=== PATIENT | female | born 1990 | race Caucasian/White ===

== ENCOUNTER → 2025-05-20 10:31 | Outpatient (BNVA) | payer MEDICAID, SELFPAY | PROVIDERS: Visit Provider Emergency Medicine | DX: J02.9 Acute pharyngitis, unspecified (principal) | CPT/HCPCS: 87071; 87880 ==

== ENCOUNTER 2025-05-25 11:48 | Emergency (ER) | payer OTHER, SELFPAY ==
--- OUTSIDE RECORDS SUMMARY | 2025-05-25 11:55 | XMS_ITS | Clinical Summary ---
Author Organization [facility] Address [address] [place] [address] Phone Care Team Providers Care Chemistry Quality Control Technician Name Role Phone Demetrio Ruiz MD Primary Care Provider Allergies Active Allergy Reactions Criticality Noted Date Comments Medroxyprogesterone Other (See Comments) 2017 Bleeding for 1 yr Medications lamoTRIgine (LaMICtal) 200 mg tablet Take 200 mg by mouth daily at bedtime. 3 Active buPROPion HCL (WELLBUTRIN XL) 300 mg Extended Release 24 hour tablet Take 1 Tablet by mouth daily. 4 Active lamoTRIgine (LaMICtal) 25 mg tablet Take 25 mg by mouth daily. 4 Active Caplyta 42 mg Capsule Take 42 mg by mouth daily. 5 Active ibuprofen (MOTRIN) 600 mg tablet Take 600 mg by mouth. 5 Active HYDROcodone-emily taminophen (NORCO) 5-325 mg tabletIndicatio ns:Bartholin's gland abscess Take 1 Tablet by mouth every 6 hours as needed for Pain. Max Daily Amount: 4 Tablets 7 Tablet 5 Active prazosin (MINIPRESS) 1 mg capsule Take 1 mg by mouth daily at bedtime. Active phentermine (ADIPEX P) 37.5 mg tabletIndicatio ns:Morbid obesity with body mass index of 40.0-49.9 (CMS/HCC) TAKE 1 TABLET BY MOUTH DAILY BEFORE BREAKFAST 30 Tablet 3 09/05/202 5 Active Active Problems Problem Noted Date Diagnosed Date Bipolar affective disorder in remission 10/19/19 Borderline personality disorder 10/18/2024 Lumbar radiculopathy, chronic 05/04/2024 Morbid obesity with body mass index of 40.0-49.9 05/03/2024 Vitamin D deficiency 02/19/2023 Severe episode of recurrent major depressive disorder, without psychotic features 04/11/2021 Encounters Date Type Department Care Team Description 05/18/2025 External Device Data [facility] Provider, Abstract 05/17/2025 External Device Data [facility] ABSTRACTION Provider, Abstract 04/26/2025 External Device Data [facility] Provider, Abstract 04/26/2025 External Device Data [facility] Provider, Abstract 04/26/2025 External Device Data [facility] ABSTRACTION Provider, Abstract 04/19/2025 External Device Data [facility]CTION Provider, Abstract 03/25/[address] [address] Demetrio Ruiz MD Morbid obesity with body mass index of 40.0-49.9 (CMS/HCC) 03/22/2025 External Device Data [facility] ABSTRACTION Provider, Abstract 03/15/2025 External Device Data [facility] ABSTRACTION Provider, Abstract 03/08/2025 External Device Data [facility] ABSTRACTION Provider, Abstract 02/25/2025 Results Follow-Up [address] [address] Demetrio Ruiz MD HEMOGLOBIN A1C, CBC WITH DIFFERENTIAL, COMPREHENSIVE METABOLIC PANEL, Additional followed-up results: 3 02/24/2025 8:40 AM CDT Office Visit [address] [address] Demetrio Ruiz MD Morbid obesity with body mass index of 40.0-49.9 (CMS/HCC) (Primary Dx); Severe episode of recurrent major depressive disorder, without psychotic features (CMS/HCC); Bipolar affective disorder in remission; Borderline personality disorder (CMS/HCC) 02/23/2025 External Device Data [facility] ABSTRACTION Provider, Abstract 02/22/2025 External Device Data [facility] ABSTRACTION Provider, Abstract from Last 3 Months Immunizations Immunization Administration Dates Next Due (ADACEL/BOOSTRIX)(10 YR UP) TDAP VACCINE, 0.5ML, IM 11/02/2024,06/09/2016 (HAVRIX/VAQTA)(19 YRS UP) HE PATITIS A VACCINE ADULT DOSAGE 1 ML IMM 01/05/2021 (IPOL)(6 WKS AND UP) POLIOVI EVANGELINA VACCINE, INACTIVATED (IPV), 3 DOSE, SUBCUT OR IM 02/05/1995,02/12/1993,1991,1990 (M-M-R II/PRIORIX)(12 MO UP) MEASLES, MUMPS AND RUBELLA VIRUS VACCINE, 0.5 ML IM/SUBCUT 02/05/1995,09/17/1994 (SPIKEVAX) (12 YRS UP PRIMAR Y SERIES) COVID-19 VACCINE - MRNA-1273(PF) 100 MCG/0.5 ML IM SUSP 03/20/2021 Hepatitis B Vaccine 05/04/2004,08/16/2003,2002 Influenza Seasonal Unspecifi ed Formulation IM 08/22/2022(Deferred: Patient Decision),10/31/2021(Deferred: Patient Decision) Family History Medical History Relation Name Comments Unknown Brother ZENA Diabetes Father YOHANA Breast Cancer Maternal Aunt great aunt Heart Disease Maternal Grandfather Depression Mother JOYCE Stroke Mother JOYCE Unknown Mother JOYCE Depression, fib romyalgia Anxiety Sister 1 SIMA Depression Sister 1 SIMA Healthy Sister 2 CHRISTA Relation Name Status Comments Brother ZENA Alive Father YOHANA Alive Maternal Aunt great aunt Maternal Grandfather Mother JOYCE Sister 1 SIMA Alive Sister 2 CHRISTA Alive Social History Tobacco Use Types Packs/Day Years Used Date Smoking Tobacco: Every Day Cigarettes 0.3 8.9 Started: 07/21/2011; Last attempted to quit: 07/21/2019 Passive Smoke Exposure: Past Smokeless Tobacco: Never Tobacco Cessation:Ready to Q uit: No; Counseling Given: Yes Alcohol Use Standard Drinks/Week Comments Not Currently 0 (1 standard drink = 0.6 oz pur e alcohol) 3x monthly Financial Resource Strain Answer Date R ecorded How hard is it for you to pa y for the very basics like food, housing, medical care, and heating? Somewhat hard 04/17/2023 Food Insecurity Answer Date Recorded In the past 12 months, have you worried that your food would run out before you had money to buy more? Never true 04/17/2023 In the past 12 months, did y ou run out of food and didn't have money to buy more? Never true 04/17/2023 Transportation Needs Answer Date Record ed In the past 12 months, has l ack of transportation kept you from medical appointments or from getting medications? No 03/22 In the past 12 months, has l ack of transportation kept you from meetings, work, or from getting things needed for daily living? No 04/17/2023 Housing Stability Answer Date Recorded In the last 12 months, was t here a time when you were not able to pay the mortgage or rent on time? No 04/17/2023 Number of Times Moved in the Last Year Not on fi le 04/17/2023 Unstable Housing in the Last Year Not on file 04/17/2023 Feeling Safe Answer Date Recorded Are you in a relationship wi th someone who hurts you emotionally and/or physically? 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 Gender Identity Not on file Sexual Orientation Not on file Occupation Industry Job Start Date Job End Date Not on file Not on file Not on file Not on file Last Filed Vital Signs Vital Sign Reading Time Taken Comments Blood Pressure 134/78 02/24/2025 8:37 AM CDT Pulse 84 02/24/2025 8:37 AM CDT Temperature 36.4 C (97.6 F) 02/24/2025 8:37 AM CDT Respiratory Rate 16 02/24/2025 8:37 AM CDT Oxygen Saturation 98% 02/24/2025 8:37 AM CDT Inhaled Oxygen Concentration - - Weight 130.2 kg (287 lb) 02/24/2025 8:37 AM CDT Height 167.6 cm (5' 6 ) 02/24/2025 8:37 AM CDT Body Mass Index 46.32 02/24/2025 8:37 AM CDT Plan of Treatment Health Maintenance Due Date Last Done Comments HPV/Cotest () 01/12/2012 HPV VACCINES (1 - 3-dose SCD M series) 2018 HPV/Cotest (30-65) 2021 INFLUENZA VACCINE (#1) 2025 COVID-19 Vaccine (4 - 2024-2 6 season) 2025 12/22/2021, 12/01/2021, 03/20/2021 Preventative Visit-Managed Medicaid 09/02/2025 09/01/2024, 02/10/2024, 08/25/2023, Additional history exists CERVICAL CANCER SCREENING 02/09/2027 PAP SMEAR 02/09/2027 02/10/2024 (Prev iously completed) DTAP/TDAP/TD VACCINES (3 - T d or Tdap) 11/02/2034 11/02/2024, 06/09/2016 HEPATITIS B VACCINES Completed 05/04/2004, 08/16/2003, 06/13/2003 Procedures Procedure Name Priority Date/Time Associated Diagnosis Comments T4 FREE Routine 02/24/2025 8:56 AM CDT Morbid obesity with body mass index of 40.0-49.9 (CMS/HCC) TSH Routine 02/24/2025 8:56 AM CDT Morbid obesity with body mass index of 40.0-49.9 (CMS/HCC) LIPID PANEL Routine 02/24/2025 8:56 AM CDT Morbid obesity with body mass index of 40.0-49.9 (CMS/HCC) COMPREHENSIVE METABOLIC PANEL Routine 02/24/2025 8:56 AM CDT Morbid obesity with body mass index of 40.0-49.9 (CMS/HCC) CBC WITH DIFFERENTIAL Routine 02/24/2025 8:56 AM CDT Morbid obesity with body mass index of 40.0-49.9 (CMS/HCC) HEMOGLOBIN A1C Routine 02/24/2025 8:56 AM CDT Morbid obesity with body mass index of 40.0-49.9 (CMS/HCC) from Last 3 Months Results * (ABNORMAL) CBC WITH DIFFERENTIAL (02/24/2025 8:56 AM CDT) WBC 9.7 3.8 - 10.8 Thousand/ uL [facility] RBC 5.05 3.80 - 5.10 Million/u L [facility] HEMOGLOBIN 13.4 11.7 - 15.5 g/dL [facility] HEMATOCRIT 43.9 35.0 - 45.0 % [facility] MCV 86.9 80.0 - 100.0 fL [facility] MCH 26.5(L) 27.0 - 33.0 pg [facility] MCHC 30.5(L) 32.0 - 36.0 g/dL [facility] Comment: For adults, a slight decrease in the calculated MCHC value (in the range of 30 to 32 g/dL) is most likely not clinically significant; however, it should be interpreted with caution in correlation with other red cell parameters and the patient's clinical condition. RDW 13.6 11.0 - 15.0 % [facility] PLATELETS 351 140 - 400 Thousand/ uL [facility] MPV 12.0 7.5 - 12.5 fL [facility] NEUTROPHIL ABSOLUTE 6,412 1,500 - 7,800 cells/uL [facility] LYMPHOCYTE ABSOLUTE 2,328 850 - 3,900 cells/uL [facility] MONOCYTE ABSOLUTE 951(H) 200 - 950 cells/uL [facility] EOSINOPHIL ABSOLUTE 0(L) 15 - 500 cells/uL [facility] BASOPHILS ABSOLUTE 10 0 - 200 cells/uL [facility] NEUTROPHIL 66.1 % [facility] LYMPHOCYTES 24.0 % [facility] MONOCYTE 9.8 % [facility] EOSINOPHILS 0.0 % [facility] BASOPHILS 0.1 % [facility] Comment: FASTING:YES FASTING: YES Test Performed at: [facility] [address] [place] [address] Víctor Duffy Vo Blood 02/24/2025 8:56 AM CDT 02/24/2025 8:56 AM CDT Demetrio Ruiz MD HEMATOLOGY ORDERABLES Final Resu lt Performing Organization Address City/[facility]/ZIP Code Phone Number [facility] [phone] [place] [address] [address] [place] [place] [phone] * TSH (02/24/2025 8:56 AM CDT) Pathologist [facility] TSH 3.15 mIU/L [facility] Comment: Reference Range > or = 20 Years 0.40-4.50 Ranges First trimester 0.26-2.66 Second trimester 0.55-2.73 Third trimester 0.43-2.91 FASTING:YES FASTING: YES Test Performed at: [place] [address] [address] [place] [address] [facility] Vo Blood 02/24/2025 8:56 AM CDT 02/24/2025 8:56 AM CDT Demetrio Ruiz MD CHEMISTRY ORDERABLES Final Resul t Performing Organization Address City/[facility]/ZIP Code Phone Number [facility] [phone] [place] [address] [address] [place] [place] [phone] * T4 FREE (02/24/2025 8:56 AM CDT) [facility] T4 FREE 1.3 0.8 - 1.8 ng/dL [facility] Comment: Test Performed at: [place] [address] [address] [place] [place] [phone] [facility] Blood 02/24/2025 8:56 AM CDT 02/24/2025 8:56 AM CDT Demetrio Ruiz MD CHEMISTRY ORDERABLES Final Resul t Performing Organization Address City/[facility]/ZIP Code Phone Number [facility] [phone] [place] [address] [place] [address] * HEMOGLOBIN A1C (02/24/2025 8:56 AM CDT) [facility] HEMOGLOBIN A1C 5.3 <5.7 % of total Hgb [facility] Comment: For the purpose of screening for the presence of diabetes: <5.7% Consistent with the absence of diabetes 5.7-6.4% Consistent with increased risk for diabetes (prediabetes) > or =6.5% Consistent with diabetes This assay result is consistent with a decreased risk of diabetes. Currently, no consensus exists regarding use of hemoglobin A1c for diagnosis of diabetes in children. According to [place] Diabetes Association (ADA) guidelines, hemoglobin A1c <7.0% represents optimal control in non- diabetic patients. Different metrics may apply to specific patient populations. Standards of Medical Care in Diabetes(ADA). ESTIMATED AVERAGE GLUCOSE (MG/DL) 105 mg/dL [facility] ESTIMATED AVERAGE GLUCOSE (MMOL/L) 5.8 mmol/L [facility] Comment: FASTING:YES FASTING: YES Test Performed at: [facility] [address] [place] [address] MissyEva Duffy Blood 02/24/2025 8:56 AM CDT 02/24/2025 8:56 AM CDT us Demetrio Ruiz MD CHEMISTRY ORDERABLES Final Resul t [facility] [phone] [facility] [place] [address] [address] [place] [address] * (ABNORMAL) LIPID PANEL (02/24/2025 8:56 AM CDT) CHOLESTEROL 217(H) <200 mg/dL [facility] HDL 51 > OR = 50 mg/dL [facility] TRIGLYCERIDE 159(H) <150 mg/dL [facility] LDL CALCULATED 137(H) mg/dL (calc) [facility] Comment: Reference range: <100 Desirable range <100 mg/dL for primary prevention; <70 mg/dL for patients with CHD or diabetic patients with > or = 2 CHD risk factors. LDL-C is now calculated using the Andrea calculation, which is a validated novel method providing better accuracy than the Friedewald equation in the estimation of LDL-C. Feliciano JACKSON et al. MARIANA. 2013;310(19): 9246-8704 (http://education.[employer]/faq/UDW054) CHOL/HDL RATIO 4.3 <5.0 (calc) [facility] NON-HDL CHOLESTEROL 166(H) <130 mg/dL (calc) [facility] Comment: For patients with diabetes plus 1 major ASCVD risk factor, treating to a non-HDL-C goal of <100 mg/dL (LDL-C of <70 mg/dL) is considered a therapeutic option. Test Performed at: [facility] [address] [place] [address] MissyEva Don Blood 02/24/2025 8:56 AM CDT 02/24/2025 8:56 AM CDT us Demetrio Ruiz MD CHEMISTRY ORDERABLES Final Resul t [facility] [phone] [facility] [place] [address] [place] [address] * COMPREHENSIVE METABOLIC PANEL (02/24/2025 8:56 AM CDT) GLUCOSE 95 65 - 99 mg/dL [facility] Comment: Fasting reference interval BUN 9 7 - 25 mg/dL [facility] CREATININE 0.95 0.50 - 0.97 mg/dL [facility] GFR 81 > OR = 60 mL/min/1. 73m2 [facility] BUN/CREAT RATIO SEE NOTE: 6 - 22 (calc) [facility] Comment: Not Reported: BUN and Creatinine are within reference range. SODIUM 139 135 - 146 mmol/L [facility] POTASSIUM 4.7 3.5 - 5.3 mmol/L [facility] CHLORIDE 102 98 - 110 mmol/L [facility] CO2 29 20 - 32 mmol/L [facility] CALCIUM 9.5 8.6 - 10.2 mg/dL [facility] TOTAL PROTEIN 7.5 6.1 - 8.1 g/dL [facility] ALBUMIN 4.2 3.6 - 5.1 g/dL [facility] GLOBULIN 3.3 1.9 - 3.7 g/dL (calc) [facility] ALBUMIN/GLOBULIN RATIO 1.3 1.0 - 2.5 (calc) [facility]sh[facility] Little-[facility] BILIRUBIN TOTAL 0.3 0.2 - 1.2 mg/dL [facility] ALKALINE PHOSPHATASE 94 31 - 125 U/L [facility] chris Michele AST 20 10 - 30 U/L [facility] ALT 29 6 - 29 U/L [facility] Comment: FASTING:YES FASTING: YES Test Performed at: [facility] [place] [address] [place] [address] Víctor Don Blood 02/24/2025 8:56 AM CDT 02/24/2025 8:56 AM CDT us Demetrio Ruiz MD CHEMISTRY ORDERABLES Final Resul t [facility] [phone] [place] [address] [place] [address] from Last 3 Months Insurance [employer] MEDICAID Sara [address] [address] [facility] MEDICAID * Guarantor: [id number] Account Type Relation to Patient Date of Phone Billing Address Workers Comp Employ[employer] [address] [address] [place] [address] Advance Directives For more information, please contact: [phone] * Full Code (Latest Code Status on File) Date Activated Date Inactivated Comments 04/10/2021 11:16 PM 04/13/2021 4:52 PM Care Teams Chemistry Quality Control Technician Relationship Specialty Start Date End Date Demetrio Ruiz MD [address] [place] [phone] PCP - General Internal Medicine 03/25/25
--- OUTSIDE RECORDS SUMMARY | 2025-05-25 11:55 | XMS_ITS | Encounter Summary ---
Author Organization [facility] Address [address] [place] [address] Care Team Providers Care Campus Safety Officer Name Role Phone Demetrio Ruiz MD Primary Care Provider [phone] Encounter Details Date Type Department Care Team (Late st Contact Info) Description 05/17/2025 External Device Data [facility] ABSTRACTION Provider, Abstract NO ADDRESS ON FILE Social History Tobacco Use Types Packs/Day Years Used Date Smoking Tobacco: Every Day Cigarettes 0.3 8.9 Started: 07/21/2011; Last attempted to quit: 07/21/2019 Passive Smoke Exposure: Past Smokeless Tobacco: Never Alcohol Use Standard Drinks/Week Comments Not Currently [...] on file 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 Gender Identity Not on file Sexual Orientation Not on file Occupation Industry Job Start Date Job End Date Not on file Not on file Not on file Not on file documented as of this encounter Plan of Treatment Not on file documented as of this encounter Visit Diagnoses Not on filedocumented in this encounter Additional Health Concerns Assessment Noted Time PHQ-9 Depression Total Score: 4 09/01/19 11:22 AM HOUSEKEEPING ROOM INSPECTOR documented as of this encounter Care Teams Campus Safety Officer Relationship Specialty Start Date End Date Demetrio Ruiz MD [address] [place] [phone] PCP - General Internal Medicine 03/25/25 documented as of this encounter
--- OUTSIDE RECORDS SUMMARY | 2025-05-25 11:55 | XMS_ITS | Encounter Summary ---
Author Organization [facility] Address 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
--- OUTSIDE RECORDS SUMMARY | 2025-05-25 11:55 | XMS_ITS | Encounter Summary ---
Author Organization [facility] Address [address] [place] [address] Care Team Providers Care Operating Room Specialist Name Role Phone Demetrio Ruiz MD Primary Care Provider [phone] Encounter Details Date Type Department Care Team (Late st Contact Info) Description 11/30/2008 Outpatient Historical [facility] [address] [facility] [address] [place] [phone] Alexis Jeffers DO [address] [place] [address] [address] [place] [address] Social History Tobacco Use Types Packs/Day Years Used Date Smoking Tobacco: Never Assessed Comments Unknown Sex and Gender Information Value Date Recorded Sex Assigned at Not on file 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
--- OUTSIDE RECORDS SUMMARY | 2025-05-25 11:55 | XMS_ITS | Encounter Summary ---
Author Organization [facility] Address [address] [place] [address] Care Team Providers Care Railroad Carman Name Role Phone Demetrio Ruiz MD Primary Care Provider [phone] Encounter Details Date Type Department Care Team (Late st Contact Info) Description 12/01/2008 Outpatient Historical [facility] [address] [facility] [address] [place] [phone] Alexis Jeffers DO [address] [place] [address] [address] [place] [address] Social History Tobacco Use Types Packs/Day Years Used Date Smoking Tobacco: Never Assessed Comments Unknown Sex and Gender Information Value Date Recorded Sex Assigned at Not on file 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
--- NOTE | 2025-05-25 11:56 | XR_ITS ---
WS: [id number] Left elbow, 3 views, 05/25/2025 Clinical Data: pain Comparison: None. Findings: There is a posterior dislocation of the radius and ulna from the distal humerus. No definite fractures are seen. The soft tissues are normal. XR/XR elbow LT min 3V* [id number] Impression: Posterior dislocation of the radius and ulna from distal left humerus.
[2025-05-25 12:02] VITALS: BP 131/87; PULSE 97; RESP 17; TEMP 36.6; O2SAT 100
[2025-05-25 12:09] VITALS: BP 139/102; PULSE 84; O2SAT 100
[2025-05-25] MEDS: HYDROmorphone 0.5 MG/0.5 ML INJ 1 MG IM (12:10)
[2025-05-25] MEDS: ondansetron 2 mg/ML SDV 2 mL 4 MG IVP ×2 (12:10→12:54)
--- NOTE | 2025-05-25 12:15 | W.ED.FALL ---
HPI - Fall General: Chief Complaint: Fall Stated Complaint: L elbow pain Time Seen by Provider: 05/25/25 11:52 History of Present Illness: 35-year-old female with no significant past medical history presents emergency room after having had a fall. She tripped and fell and landed on her left elbow and feels like it may be broken. Neurovascular intact. No other injuries. No head injury. No anticoagulation. No chest pain. No abdominal pain. Related Data Previous Rx's ?Medication ?Instructions ?Recorded amoxicillin 500 mg tablet 500 mg PO BID 10 days #20 tabs 05/20/25 ervcrvtgaynhcsv-kznrmxwxxghrjmn-PZ 5 ml PO Q6H PRN cold symptoms #118 05/20/25 2 mg-30 mg-10 mg/5 mL oral syrup mL (Bromfed DM) dexamethasone 2 mg tablet 10 mg (5 x 2 mg) PO DAILY 1 day #5 05/20/25 tabs hydrocodone 5 mg-acetaminophen 325 1 tab PO Q6H PRN pain #20 tabs 05/25/25 mg tablet polyethylene glycol 3350 17 17 g PO DAILY #510 grams 05/25/25 gram/dose oral powder (Miralax) Allergies Allergy/AdvReac Type Severity Reaction Status Date / Time No Known Allergies Allergy Unverified 05/20/25 10:30 Review of Systems Narrative: Constitutional symptoms: Negative except as documented in HPI. Skin symptoms: Negative except as documented in HPI. Eye symptoms: Negative except as documented in HPI. ENMT symptoms: Negative except as documented in HPI. Respiratory symptoms: Negative except as documented in HPI. Cardiovascular symptoms: Negative except as documented in HPI. Gastrointestinal symptoms: Negative except as documented in HPI. Genitourinary symptoms: Negative except as documented in HPI. Musculoskeletal symptoms: Negative except as documented in HPI. Neurologic symptoms: Negative except as documented in HPI. Psychiatric symptoms: Negative except as documented in HPI. Endocrine symptoms: Negative except as documented in HPI. PFSH ED PFSH: Social History Smoking and tobacco/nicotine status: unknown if used tobacco/nicotine Physical Exam Narrative: EXAM NARRATIVE: General: Alert, no acute distress. Skin: warm and dry Head: Normocephalic Neck: Trachea midline Eye: Extraocular movements are intact. Ears, nose, mouth and throat: Oral mucosa moist Respiratory: Respirations are non-labored Musculoskeletal: Patient currently has a large wrap in an immobilizer in place with a homemade sling. Distal pulses are good. Gastrointestinal: Abdomen does not appear distended Neurological: Alert and oriented, No focal neurological deficit observed. Psychiatric: Cooperative, appropriate mood & affect. Course Vital Signs: Vital signs: Vital Signs Temperature 98.6 F 05/25/25 13:04 Pulse Rate 88 05/25/25 13:51 Respiratory Rate 20 H 05/25/25 13:50 Blood Pressure 130/89 05/25/25 13:51 Pulse Oximetry 99 05/25/25 13:51 Oxygen Delivery Me thod Nasal Cannula 05/25/25 13:04 MDM - Fall Medical Decision Making Medical decision making: Patient's reason for coming to the emergency room Social determinants: Patient is employed at [employer] I reviewed the patient's medical record. Only 1 other visit here recently to family medicine I reviewed the patient's current home meds No regular home meds. Alternate historians: Differential diagnosis including but not limited to and based on the above HPI, review of systems and physical exam: In this patient with a musculoskeletal extremity traumatic injury and x-ray is being ordered to rule out fractures and dislocations. Orders placed to evaluate differential diagnosis based on the above differential, HPI and physical exam X-ray of the left elbow: Dislocation without any fracture. This was reviewed and interpreted by myself the emergency room physician. I also reviewed the radiology report. Procedural sedation Time: See nursing documentation Confirmed: Patient and procedure correct. Consent: Consent: The risks and benefits of monitored anesthesia care, including the risk of aspiration, nausea/vomiting and the risks of not performing the procedure, including severe pain and inability to complete the procedure, were all discussed with the patient. The alternatives of performing the procedure, including local anesthesia and IV analgesia, also discussed. The patient has a ride home available Indication: Closed reduction. Monitoring: Cardiac, blood pressure, continuous pulse oximetry. Preparation: Suction, IV access, Constant attendance, Supplemental oxygen. ASA Class: I- healthy patient. No significant family history of sedation complications See ER physician note for summary of the patient's present medication list and for drug allergy and intolerance history Physical exam: Airway: appears normal, Heart: regular rate and rhythm, Breath sounds: equal. Pre sedation vital signs: See nurse's notes. Procedural sedation: 100 mg IV propofol. . Post sedation vital signs: See nurse's notes. Patient tolerated: Well. Complications: The patient was recovered from the sedation without complication or incident. Post sedation condition: Patient returned to pre-sedation level of awareness. The monitoring was discontinued at this time. Performed by: Self. Notes: Pt attended by independent trained observer time of sedation was 15 minutes. . Fracuture / Dislocation procedure Time: See nursing documentation Confirmed correct: Patient, procedure, sight. Consent: Patient Indication: Dislocation of left elbow Location: Left elbow Pre procedure exam: Sensory intact, Procedural sedation: (repeat): IV propofol 100 mg Monitoring: Cardiac, blood pressure and pulse oximiter Technique: traction - counter traction. Post-procedure exam: _ alignment improved, circulatory neuro intact. Immobilization: Long-arm splint placed. Sling. Patient tolerated: Well Complications: None Performed by (rpt): Self Notes: Procedure time: 15 minutes Postreduction films: Reduced elbow with no obvious fractures. This was reviewed and interpreted by myself the emergency room physician. I also reviewed the radiology report. Lab Review: Laboratory results were reviewed and interpreted by myself the emergency room physician. No lab work needed today. Assessment of risk: Level of risk: Mild Hospitalization considerations: No hospitalization needed. Reexamination: Elbow reduced. Patient is now awake. Neurovascularly intact. Splint placed by nursing. Consultation: I spoke with Dr. Penn prior to reducing elbow. He agrees it should be reduced here in the emergency room and recommends a long-arm splint and follow-up in clinic Lab Data Radiology Impressions Elbow X-Ray 05/25/25 13:08 Impression: Reduction of posterior dislocation of the left radius and ulna. All radiology interpretation(s) finalized by discharge Discharge Plan Discharge Patient Disposition: Home Clinical Impression: Dislocated elbow Condition: Stable Prescriptions: New hydrocodone-acetaminophen 5-325 mg tablet 1 tab PO Q6H PRN (Reason: pain) Qty: 20 0RF polyethylene glycol 3350 [Miralax] 17 gram/dose powder 17 g PO DAILY Qty: 510 0RF Rx Instructions: Take 1 scoop daily while taking pain medications. No Action amoxicillin 500 mg tablet 500 mg PO BID 10 Days Qty: 20 0RF dexamethasone 2 mg tablet 10 mg PO DAILY 1 Days Qty: 5 0RF Rx Instructions: take all at same time today bxyspywxdoravks-lbsqrazcw-CB [Bromfed DM] 2-30-10 mg/5 mL syrup 5 ml PO Q6H PRN (Reason: cold symptoms) Qty: 118 0RF Discharge Orders: Discharge ED (Routine); Ordered 05/25/25 Ordered By: Corine Persaud Referrals: Toi Penn MD [Physician, Orthopedics] - 4-7 days Referral Note: Please call for a follow-up appointment Discharge Diet: Usual diet Discharge Activity: Limit activity as instructed Patient Instructions: Opioid Safety, Pain Management, Patient Portal & Enedina Instructions Activity Restrictions/Additional Instructions: Thank you for choosing [facility] for your healthcare needs today. You have been screened and evaluated and felt safe for discharge. Health conditions do change or evolve sometimes and as such it is important that you follow up with your Primary Doctor to be re checked, 3-5 days is a general good time frame for follow up. You are always welcome to return to the ED for re assessment if your symptoms are worsening or you have new concerns Print Language: Kinyarwanda Coding Level of Care Code ED Book Solicitor for Nehemias Paiz
[2025-05-25 13:04] VITALS: BP 126/87; PULSE 89; RESP 14; TEMP 37; O2SAT 99
[2025-05-25] MEDS: propofol 10 mg/mL SDV 20 mL 100 MG IVP (13:05)
--- NOTE | 2025-05-25 13:08 | XR_ITS ---
WS: [id number] Left elbow, AP and lateral views, 05/25/2025, 1316 hours Clinical Data: post reduction Comparison: Left elbow, 05/25/2025, 1212 hours Findings: Posterior dislocation of the radius and ulna from the distal left humerus has been reduced. No fractures are seen. There is a posterior splint. XR/XR elbow LT 2V [id number] Impression: Reduction of posterior dislocation of the left radius and ulna.
--- NOTE | 2025-05-25 13:43 | PC.NURSE ---
applied posterior long arm splint
[2025-05-25 13:50] VITALS: RESP 20
[2025-05-25] MEDS: oxyCODONE 5 mg IR Tab/Cap PO (13:50)
[2025-05-25 13:51] VITALS: BP 130/89; PULSE 88; O2SAT 99
== END 2025-05-25 13:52 | disposition home or self-care (01) ==
PROVIDERS: Emergency Provider Emergency Medicine
DX: S53.102A Unspecified subluxation of left ulnohumeral joint, initial encounter (principal); W01.0XXA Fall on same level from slipping, tripping and stumbling without subsequent striking against object, initial encounter
CPT/HCPCS: 24600; 36415; 73070; 73080; 94799; 96374; 96376; 99152; 99285; J1171; J2405; J2704; J7040; J9999

== ENCOUNTER 2025-05-28 11:54 | Emergency (ER) | payer OTHER, SELFPAY ==
--- OUTSIDE RECORDS SUMMARY | 2025-05-28 11:58 | XMS_ITS | Encounter Summary ---
Author Organization [facility] Address [address] [place] [address] Care Team Providers Care Engine Assembler Name Role Phone Demetrio Ruiz MD Primary Care Provider [phone] Encounter Details Date Type Department Care Team (Late st Contact Info) Description 11/30/2008 Outpatient Historical [facility] [address] [place] [id number] Alexis Jeffers DO [address] [place] [address] [address] [place] [address] Social History Tobacco Use Types Packs/Day Years Used Date Smoking Tobacco: Never Assessed Comments Unknown Sex and Gender Information Value Date Recorded Sex Assigned at Not on file 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
--- OUTSIDE RECORDS SUMMARY | 2025-05-28 11:58 | XMS_ITS | Clinical Summary ---
Author Organization [facility] Address [address] [place] [address] Phone Care Team Providers Care Basket Filler Name Role Phone Demetrio Ruiz MD Primary Care Provider [phone] Allergies Active Allergy Reactions Criticality Noted Date [...] Data STL ABSTRACTION Provider, Abstract 03/25/2025 Refill [facility] [address] [address] Demetrio Ruiz MD Morbid obesity with body mass index of 40.0-49.9 ([facility]) 03/22/2025 External Device Data STL ABSTRACTION Provider, Abstract 03/15/2025 External Device Data STL ABSTRACTION Provider, Abstract 03/08/2025 External Device Data STL ABSTRACTION Provider, Abstract 02/25/2025 Results Follow-Up [address] [address] Demetrio Ruiz MD HEMOGLOBIN A1C, CBC WITH DIFFERENTIAL, COMPREHENSIVE METABOLIC PANEL, Additional followed-up results: 3 from Last 3 Months Immunizations Immunization Administration [...] on file 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 Gender Identity Not on file Sexual Orientation [...] Maintenance Due Date Last Done Comments HPV/Cotest (21-29) 01/12/2012 HPV VACCINES (1 - 3-dose SCD [...] HEPATITIS B VACCINES Completed 05/04/2004, 08/16/2003, 06/13/2003 Insurance [facility] MEDICAID [facility] MEDICAID * Guarantor: [id number] Account Type Relation to Patient Date of Phone Billing Address Workers Comp Employer [address] [address] [place] [address] Advance Directives For more information, please contact: [phone] * Full Code (Latest Code Status on File) Date Activated Date Inactivated Comments 04/10/2021 11:16 PM 04/13/2021 4:52 PM Care Teams Basket Filler Relationship Specialty Start Date End Date Demetrio Ruiz MD [address] [place] [address] PCP - General Internal Medicine 03/25/25
--- OUTSIDE RECORDS SUMMARY | 2025-05-28 11:59 | XMS_ITS | Encounter Summary ---
Author Organization [facility] Address [address] [place] [address] Care Team Providers Care Tail Puller Name Role Phone Demetrio Ruiz MD Primary Care Provider [phone] Encounter Details Date Type Department Care Team (Late st Contact Info) Description 12/01/2008 Outpatient Historical [facility] [address] [address] [place] [phone] Alexis Jeffers DO [address] [place] [address] [address] [place] [address] Social History Tobacco Use Types Packs/Day Years Used Date Smoking Tobacco: Never Assessed Comments Unknown Sex and Gender Information Value Date Recorded Sex Assigned at Not on file 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
[2025-05-28 12:15] VITALS: BP 157/94; PULSE 120; RESP 18; TEMP 36.7; O2SAT 97; BMI 44.4
[2025-05-28 12:27] VITALS: BP 124/95; O2SAT 99
--- NOTE | 2025-05-28 12:45 | XRR_ITS ---
PROCEDURE INFORMATION: Exam: XR Left Elbow Exam date and time: 05/28/2025 1:00 PM Age: 35 years old Clinical indication: Pain; Elbow; Left; Additional info: Lt upper ext pain; PT dislocated lt elbow x 3 days ago/was set/splinted; New injury today to lt forearm/wrist with splint in place TECHNIQUE: Imaging protocol: Radiologic exam of the left elbow. Views: 1 or 2 views. COMPARISON: CR (UP EX, ) 05/28/2025 12:57 PM FINDINGS: Bones/joints: Linear cortical defect with step-off along the left radial head on oblique view. Alignment otherwise maintained. Soft tissues: There is a cast overlying the soft tissues. XR/XR elbow LT 2V [id number] IMPRESSION: Nondisplaced radial head fracture suggested by linear defect and cortical step-off on oblique imaging.
--- NOTE | 2025-05-28 12:45 | XRR_ITS ---
PROCEDURE INFORMATION: Exam: XR Left Wrist Exam date and time: 05/28/2025 12:57 PM Age: 35 years old Clinical indication: Pain; Wrist; Left; Additional info: Lt upper ext pain; PT dislocated lt elbow x 3 days ago/was set/splinted; New injury today to lt forearm/wrist with splint in place TECHNIQUE: Imaging protocol: Radiologic exam of the left wrist. Views: 3 or more views. COMPARISON: No relevant prior studies available. FINDINGS: Bones/joints: Nondisplaced intra-articular fracture of the distal left radius. No malalignment identified. Soft tissues: Soft tissue swelling. There is a cast overlying the soft tissues. XR/XR wrist LT min 3V* [id number] IMPRESSION: Nondisplaced intra-articular distal left radial fracture.
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
[2025-05-28 14:26] VITALS: BP 152/104; O2SAT 99
[2025-05-28 14:57] VITALS: RESP 17; O2SAT 100
[2025-05-28] MEDS: morphine 4 mg/mL SDV 1 mL IM (14:57)
[2025-05-28 15:58] VITALS: BP 158/103; PULSE 100; RESP 17; O2SAT 98
== END 2025-05-28 15:59 | disposition home or self-care (01) ==
PROVIDERS: Emergency Provider Student in an Organized Health Care Education/Training Program
DX: S52.125D Nondisplaced fracture of head of left radius, subsequent encounter for closed fracture with routine healing (principal); S52.572D Other intraarticular fracture of lower end of left radius, subsequent encounter for closed fracture with routine healing; W19.XXXD Unspecified fall, subsequent encounter
CPT/HCPCS: 73070; 73110; 96372; 99284; J1885; J2270

== ENCOUNTER → 2025-06-02 15:19 | Outpatient (BNVA) | payer OTHER, SELFPAY | PROVIDERS: Visit Provider Orthopaedic Surgery | DX: S52.125D Nondisplaced fracture of head of left radius, subsequent encounter for closed fracture with routine healing (principal); S52.572D Other intraarticular fracture of lower end of left radius, subsequent encounter for closed fracture with routine healing; S53.105D Unspecified dislocation of left ulnohumeral joint, subsequent encounter; X58.XXXD Exposure to other specified factors, subsequent encounter | CPT/HCPCS: 73080; 73110 ==

== ENCOUNTER 2025-06-14 06:21 | Emergency (ER) | payer MEDICAID, SELFPAY ==
[2025-06-14 06:25] VITALS: BP 117/80; PULSE 88; RESP 16; TEMP 36.4; O2SAT 96; BMI 44.4
--- OUTSIDE RECORDS SUMMARY | 2025-06-14 06:27 | XMS_ITS | Encounter Summary ---
Author Organization [facility] Address [address] [place] [address] Care Team Providers Care Printer Floor Covering Assistant Name Role Phone Demetrio Ruiz MD Primary Care Provider [phone] Encounter Details Date Type Department Care Team (Late st Contact Info) Description 12/01/2008 Outpatient Historical [facility] 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
--- OUTSIDE RECORDS SUMMARY | 2025-06-14 06:27 | XMS_ITS | Clinical Summary ---
Author Organization [facility] Address [address] [place] [address] Phone Care Team Providers Care Peoplesoft Fscm Developer Name Role Phone Demetrio Ruiz MD Primary Care Provider [phone] Allergies Active Allergy Reactions Criticality Noted Date [...] MOUTH DAILY BEFORE BREAKFAST 30 Tablet 3 5 Active Active Problems Problem Noted Date Diagnosed Date Bipolar affective disorder in remission 10/19/19 Borderline personality disorder 10/18/2024 Lumbar radiculopathy, chronic 05/04/2024 Morbid obesity with body mass index of 40.0-49.9 05/03/2024 Vitamin D deficiency 02/19/2023 Severe episode of recurrent major depressive disorder, without psychotic features 04/11/2021 Encounters Date Type Department Care Team Description 05/31/2025 External Device Data STL ABSTRACTION Provider, Abstract 05/31/2025 External Device Data STL ABSTRACTION Provider, Abstract 05/18/2025 External Device Data STL ABSTRACTION Provider, Abstract 05/17/2025 External Device Data STL ABSTRACTION Provider, Abstract 04/26/2025 External Device Data STL ABSTRACTION Provider, Abstract 04/26/2025 External Device Data STL ABSTRACTION Provider, Abstract 04/26/2025 External Device Data STL ABSTRACTION Provider, Abstract 04/19/2025 External Device Data STL ABSTRACTION Provider, Abstract 03/25/2025 [facility]ARE [address] [address] Demetrio Ruiz MD Morbid obesity with body [...] Date Smoking Tobacco: Every Day Cigarettes 0.3 9 Started: 07/21/2011; Last attempted to quit: 07/21/2019 [...] on file 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 Gender Identity Not on file Sexual Orientation [...] B VACCINES Completed 05/04/2004, 08/16/2003, 06/13/2003 Insurance [facility] MEDICAID [facility] MEDICAID * Guarantor: [id number] Account Type Relation to Patient Date of Phone Billing Address Workers Comp Employer [address] [address] [place] [address] Advance Directives For more information, please contact: [phone] * Full Code (Latest Code Status on File) Date Activated Date Inactivated Comments 04/10/2021 11:16 PM 04/13/2021 4:52 PM Care Teams Peoplesoft Fscm Developer Relationship Specialty Start Date End Date Demetrio Ruiz MD [address] [place] [address] PCP - General Internal Medicine 03/25/25
--- OUTSIDE RECORDS SUMMARY | 2025-06-14 06:27 | XMS_ITS | Encounter Summary ---
Author Organization [facility] Address [address] [place] [address] Care Team Providers Care Internal Salesperson Name Role Phone Demetrio Ruiz MD Primary Care Provider [phone] Encounter Details Date Type Department Care Team (Late st Contact Info) Description 11/30/2008 Outpatient Historical 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
--- NOTE | 2025-06-14 06:31 | W.ED.FEMALGU ---
HPI - Female Genitourinary General: Chief complaint: Urogenital-Female Stated complaint: vaginal pain due to a cyst Time Seen by Provider: 06/14/25 06:27 History of Present Illness: 35-year-old female who presents emergency room with a left Bartholin cyst. Said it was small the other day when she was here after she dislocated her elbow. But over the last day or so its gotten much bigger. She has had to have this drained before. Related Data Home Medications ?Medication ?Instructions ?Recorded ?Confirmed ibuprofen 200 mg tablet (Advil) 800 mg PO Q6H PRN Fever Or Pain 05/28/25 06/02/25 [id number] 1 tab PO DAILY 05/28/25 06/02/25 fumarate 18 mg-folic acid 400 mcg tablet (One-A-Day Women's Complete) Previous Rx's ?Medication ?Instructions ?Recorded polyethylene glycol 3350 17 17 g PO DAILY #510 grams 05/25/25 gram/dose oral powder (Miralax) doxycycline monohydrate 100 mg 100 mg PO BID 10 days #20 caps 06/14/25 capsule sulfamethoxazole 800 2 tab PO BID 10 days #40 tabs 06/14/25 mg-trimethoprim 160 mg tablet (Bactrim DS) Allergies Allergy/AdvReac Type Severity Reaction Status Date / Time No Known Allergies Allergy Verified 06/02/25 15:25 Review of Systems Narrative: Constitutional symptoms: Negative except as documented in HPI. Skin symptoms: Negative except as documented in HPI. Eye symptoms: Negative except as documented in HPI. ENMT symptoms: Negative except as documented in HPI. Respiratory symptoms: Negative except as documented in HPI. Cardiovascular symptoms: Negative except as documented in HPI. Gastrointestinal symptoms: Negative except as documented in HPI. Genitourinary symptoms: Negative except as documented in HPI. Musculoskeletal symptoms: Negative except as documented in HPI. Neurologic symptoms: Negative except as documented in HPI. Psychiatric symptoms: Negative except as documented in HPI. Endocrine symptoms: Negative except as documented in HPI. [facility] ED PFSH: Social History Smoking and tobacco/nicotine status: unknown if used tobacco/nicotine Physical Exam Narrative: EXAM NARRATIVE: General: Alert, no acute distress. Skin: warm and dry Head: Normocephalic Neck: Trachea midline Eye: Extraocular movements are intact. Ears, nose, mouth and throat: Oral mucosa moist Respiratory: Respirations are non-labored Musculoskeletal: Normal ROM Gastrointestinal: Abdomen does not appear distended Genitourinary: Low left side of the vagina anterior there is a Bartholin cyst. This looks to be less than 3 cm she says its painful so concerned it might be abscess Neurological: Alert and oriented, No focal neurological deficit observed. Psychiatric: Cooperative, appropriate mood & affect. Course Vital Signs: Vital signs: Vital Signs Temperature 97.6 F 06/14/25 06:25 Pulse Rate 89 06/14/25 07:26 Respiratory Rate 16 06/14/25 06:25 Blood Pressure 143/101 06/14/25 07:26 Pulse Oximetry 97 06/14/25 07:26 Oxygen Delivery Me thod Room Air 06/14/25 06:25 MDM - Female Medical Decision Making Medical decision making Patient's reason for coming to the emergency room: Bartholin cyst Social determinants: Patient just moved to town. She does not have primary provider or gynecology follow-up. Was going to have her follow-up with gynecology but given the social determinants going to go ahead and drain the cyst. I reviewed the patient's medical record. Patient has been seen here couple times after she dislocated her elbow and there was an occult fracture that was seen on later x-rays. I reviewed the patient's current home meds Patient takes no chronic medications Alternate historians: None Differential diagnosis: including but not limited to and based on the above HPI, review of systems and physical exam: This appears to be a Bartholin cyst. Possibly an abscess but seems to just be an enlarged cyst orders placed to evaluate differential diagnosis based on the above differential, HPI and physical exam Incision and drainage. Time: 7:15 AM Confirmed patient, procedure, side, and site. Time out performed prior to procedure. Consent was obtained by patient and/or responsible libertarian. Indication: Bartholin cyst with possible abscess Pre procedure: Circulation, motor, sensory intact Location: Left vagina Anesthesia: 1% lidocaine without epinephrine Area prepared by sterile field with betadine. Approximate 0.5 cm incision was made, copious amount of clear drainage. This did not appear purulent. Post procedure examination: Circulation, motor, sensory intact. Patient tolerated the procedure well. No complications. Total time min. Pt advised to keep the area clean and dry, wash twice per day with antibacterial soap and water. Take antibiotics as prescribed. Clinical decision support: Up-to-date recommends incision and drainage without drain placement if under 3 cm. And if an abscess. If not an abscess they recommend sitz bath's with the goal of drainage. This was under 3 cm but was painful so there is no follow-up for gynecology likely during week so it drained it. Also with this being her second occurrence they do recommend antibiotic coverage. Assessment of risk: Level of risk: Low risk patient. Hospitalization considerations: No considered hospitalization Assessment and plan: Bartholin cyst ?Drainage in the emergency room. - Discharged home - Discussed plan with patient. Answered any questions. - Evaluation and treatment of this problem were appropriate in the emergency setting. No radiology studies performed this visit Discharge Plan Discharge Patient Disposition: Home Clinical Impression: Bartholin cyst Condition: Stable Prescriptions: New sulfamethoxazole-trimethoprim [Bactrim DS] 800-160 mg tablet 2 tab PO BID 10 Days Qty: 40 0RF doxycycline monohydrate 100 mg capsule 100 mg PO BID 10 Days Qty: 20 0RF No Action polyethylene glycol 3350 [Miralax] 17 gram/dose powder 17 g PO DAILY Qty: 510 0RF Rx Instructions: Take 1 scoop daily while taking pain medications. ibuprofen [Advil] 200 mg Tablet 800 mg PO Q6H PRN (Reason: Fever Or Pain) One-A-Day Women's Complete 18 mg iron- 400 mcg Tablet 1 tab PO DAILY Discharge Orders: Discharge ED (Routine); Ordered 06/14/25 Ordered By: Corine Persaud Referrals: Ashok Tristan MD [Physician, WEIGHT REDUCING TECHNICIAN] - 4-7 days Referral Note: Please call for an appointment if you do not hear from clinic in the next day or so. Discharge Diet: As Directed Discharge Activity: Increase activity as tolerated Patient Instructions: Bartholin Cyst (ED), Opioid Safety, Pain Management, Patient Portal & [facility] Instructions Activity Restrictions/Additional Instructions: Please use sitz bath and warm compresses and follow-up with gynecology. Thank you for choosing [facility] for your healthcare needs today. You have been screened and evaluated and felt safe for discharge. Health conditions do change or evolve sometimes and as such it is important that you follow up with your Primary Doctor to be re checked, 3-5 days is a general good time frame for follow up. You are always welcome to return to the ED for re assessment if your symptoms are worsening or you have new concerns Print Language: [place] Coding Level of Care Code ED Gifts Officer for Nehemias Paiz
[2025-06-14 07:26] VITALS: BP 143/101; PULSE 89; O2SAT 97
== END 2025-06-14 07:30 | disposition home or self-care (01) ==
PROVIDERS: Emergency Provider Emergency Medicine
DX: N75.0 Cyst of Bartholin's gland (principal)
CPT/HCPCS: 56420; 99283; J9999

== ENCOUNTER → 2025-07-07 09:28 | Outpatient (BNVA) | payer MEDICAID, SELFPAY | PROVIDERS: Visit Provider Orthopaedic Surgery | DX: S53.105D Unspecified dislocation of left ulnohumeral joint, subsequent encounter (principal); S52.125D Nondisplaced fracture of head of left radius, subsequent encounter for closed fracture with routine healing; X58.XXXD Exposure to other specified factors, subsequent encounter | CPT/HCPCS: 73080 ==

== ENCOUNTER 2025-07-07 11:22 | Outpatient (CLI) | payer OTHER, SELFPAY | END 2025-07-07 11:23 | disposition home or self-care (01) | LOC: SPT 11:28 | PROVIDERS: Visit Provider Orthopaedic Surgery | DX: Z46.89 Encounter for fitting and adjustment of other specified devices (principal); S53.105D Unspecified dislocation of left ulnohumeral joint, subsequent encounter; S52.572D Other intraarticular fracture of lower end of left radius, subsequent encounter for closed fracture with routine healing; X58.XXXD Exposure to other specified factors, subsequent encounter | CPT/HCPCS: 97760; L3761 ==

== ENCOUNTER 2025-07-15 14:07 | Emergency (ER) | payer OTHER, SELFPAY ==
--- NOTE | 2025-07-15 14:10 | XRR_ITS ---
PROCEDURE INFORMATION: Exam: XR Left Elbow Exam date and time: 07/15/2025 3:29 PM Age: 35 years old Clinical indication: Pain; Elbow; Left; Additional info: Injury TECHNIQUE: Imaging protocol: Radiologic exam of the left elbow. Views: 3 or more views. COMPARISON: CR (UP EX, ) 05/28/2025 1:00 PM FINDINGS: Bones/joints: No acute fracture or dislocation. Well corticated ossific densities around the elbow joint from a chronic process. No large joint effusion. Soft tissues: Normal. XR/XR elbow LT min 3V* [id number] IMPRESSION: As above
--- OUTSIDE RECORDS SUMMARY | 2025-07-15 14:10 | XMS_ITS | Encounter Summary ---
Author Organization [facility] Address [address] [place] [address] Care Team Providers Care Soap Chipper Name Role Phone Demetrio Ruiz MD Primary Care Provider [phone] Encounter Details Date Type Department Care Team (Late st Contact Info) Description 07/12/2025 External Device Data [facility] ABSTRACTION Provider, Abstract NO ADDRESS ON FILE Social History Tobacco Use Types Packs/Day Years Used Date Smoking Tobacco: Every Day Cigarettes 0.3 9.1 Started: 07/21/2011; Last attempted to quit: 07/21/2019 [...] on file Legal Sex Female 5:44 AM DATA INTEGRITY CONSULTANT Gender Identity Not on file Sexual Orientation [...] Depression Total Score: 4 09/01/19 11:22 AM DATA INTEGRITY CONSULTANT documented as of this encounter Care Teams Soap Chipper Relationship Specialty Start Date End Date Demetrio Ruiz MD [address] [place] [phone] PCP - General Internal Medicine 03/25/25 documented as of this encounter
--- OUTSIDE RECORDS SUMMARY | 2025-07-15 14:10 | XMS_ITS | Encounter Summary ---
Author Organization [facility] Address [address] [place] [address] Care Team Providers Care Radial Drill Press Operator For Plastic Name Role Phone Demetrio Ruiz MD Primary Care Provider [phone] Encounter Details Date Type Department Care Team (Late st Contact Info) Description 11/30/2008 Outpatient Historical [facility] [address] [facility] [address] [place] [phone] Alexis Jeffers DO [address] [place] [address] Social History Tobacco Use Types Packs/Day Years Used Date Smoking Tobacco: Never Assessed Comments Unknown Sex and Gender Information Value Date Recorded Sex Assigned at Not on file 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
--- OUTSIDE RECORDS SUMMARY | 2025-07-15 14:10 | XMS_ITS | Encounter Summary ---
Author Organization [facility] Address [address] [place] [address] Care Team Providers Care Machine Tack Puller Name Role Phone Demetrio Ruiz MD Primary Care Provider [phone] Encounter Details Date Type Department Care Team (Late st Contact Info) Description 12/01/2008 Outpatient Historical [facility] [address] [facility] [address] [place] [phone] Alexis Jeffers DO [address] [place] [address] Social History Tobacco Use Types Packs/Day Years Used Date Smoking Tobacco: Never Assessed Comments Unknown Sex and Gender Information Value Date Recorded Sex Assigned at Not on file 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
--- OUTSIDE RECORDS SUMMARY | 2025-07-15 14:10 | XMS_ITS | Clinical Summary ---
Author Organization [facility] Address 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 Gender Identity Not on file Sexual Orientation [...] Date Last Done Comments HPV/Cotest (21-29) 01/12/2012 HPV/Cotest (30-65) 2021 INFLUENZA VACCINE (#1) 2025 COVID-19 Vaccine (2024-2 6 season) 2025 12/22/2021, 12/01/2021, 03/20/2021 Preventative Visit-Managed Medicaid 09/02/2025 09/01/2024, 02/10/2024, 08/25/2023, Additional history exists CERVICAL CANCER SCREENING 02/09/2027 PAP SMEAR 02/09/2027 02/10/2024 (Prev iously completed) DTAP/TDAP/TD VACCINES (3 - T d or Tdap) 11/02/2034 11/02/2024, 06/09/2016 HEPATITIS B VACCINES Completed 05/04/2004, 08/16/2003, 06/13/2003 HPV VACCINES (No Doses Required) Completed Insurance [facility] [employer] MEDICAID Sara [address] [address] [facility] MEDICA[facility] * Guarantor: [id number] Account Type Relation to Patient Date of Phone Billing Address Workers Comp Employ[employer] [address] [address] [place] [address] Advance Directives For more information, please contact: [phone] * Full Code (Latest Code Status on File) Date Activated Date Inactivated Comments 04/10/2021 11:16 PM 04/13/2021 4:52 PM Care Teams Circulation Analyst Relationship Specialty Start Date End Date Demetrio Ruiz MD [address] [place] [address] [place] [address] PCP - General Internal Medicine 03/25/25
--- OUTSIDE RECORDS SUMMARY | 2025-07-15 14:10 | XMS_ITS | Encounter Summary ---
Author Organization [facility] Address [address] [place] [address] Care Team Providers Care Business Office Associate Name Role Phone Demetrio Ruiz MD Primary Care Provider [phone] Encounter Details Date Type Department Care Team [...] on file Legal Sex Female 5:44 AM DAM TENDER Gender Identity Not on file Sexual Orientation [...] Depression Total Score: 4 09/01/19 11:22 AM DAM TENDER documented as of this encounter Care Teams Business Office Associate Relationship Specialty Start Date End Date Demetrio Ruiz MD [address] [place] [phone] PCP - General Internal Medicine 03/25/25 documented as of this encounter
--- OUTSIDE RECORDS SUMMARY | 2025-07-15 14:10 | XMS_ITS | Encounter Summary ---
Author Organization [facility] Address 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
[2025-07-15 14:57] VITALS: PULSE 88; RESP 17; TEMP 36.6; O2SAT 98; BMI 42.1
--- NOTE | 2025-07-15 15:54 | W.ED.EXTPRO ---
HPI - Extremity Problem General: Chief complaint: Extremity Injury, Upper Stated complaint: lt elbow pain Time Seen by Provider: 07/15/25 15:26 Source: patient Mode of arrival: ambulatory Limitations: no limitations History of Present Illness: Patient is a 35-year-old female presents emergency department complaining of left elbow pain since 07/12. The patient has history pertinent for close nondisplaced fracture of head of left radius, was seen in the emergency department on 05/28, there is associated dislocation and patient subsequently was placed in a cast and recently has transferred to hinged elbow brace. She has been set up with physical therapy but states she has not received a call to do this. 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 States it was so severe today that she had to quit work, called her PCP who is able to see her next week but the PCP told her to come to the ED for management of her acute pain. States that has been intermittently swelling, the pain radiates from the left elbow down the entirety of the left arm. Denies any overlying skin changes, no fevers or chills. Has been taking ibuprofen for pain but this has not been helping. No other new symptoms at this time, no repeated trauma. MD Complaint: joint pain Onset (ago): day(s) Pain Consistency: constant Location: left and elbow Associated symptoms: Deny chest pain, fever(s) or rash Context: other (History of radial head fracture with dislocation) Related Data Home Medications ?Medication ?Instructions ?Recorded ?Confirmed ibuprofen 200 mg tablet (Advil) 800 mg PO Q6H PRN Fever Or Pain 05/28/25 07/12/25 [id number]-[id number] 1 tab PO DAILY 05/28/25 07/12/25 fumarate 18 mg-folic acid 400 mcg tablet (One-A-Day Women's Complete) Previous Rx's ?Medication ?Instructions ?Recorded Left elbow fredi brace #1 ea 07/07/25 Left hinge elbow brace #1 ea 07/07/25 Allergies Allergy/AdvReac Type Severity Reaction Status Date / Time No Known Allergies Allergy Verified 07/15/25 15:03 Review of Systems General: Reports: 10 or more systems reviewed and unremarkable except in HPI and below Const: Denies: fever(s) or chills Card: Denies: chest pain Resp: Denies: dyspnea or productive cough GI: Denies: abdominal pain, nausea, vomiting or diarrhea : Denies: flank pain Musc: Reports: extremity pain, extremity swelling, joint pain, joint swelling and limited range of motion; Denies: neck pain, back pain, joint redness, joint warmth or muscle weakness Skin/Breast: Denies: rash Neuro: Denies: headache(s), numbness in extremities or weakness in extremities PFSH ED PFSH: Social History Smoking and tobacco/nicotine status: current every day tobacco/nicotine user Physical Exam Const: COMMON NORMALS: patient oriented x3, no limitations, healthy appearing, alert and well nourished GENERAL APPEARANCE: anxious HENMT: COMMON NORMALS: normocephalic and atraumatic HEAD & SCALP: normocephalic and atraumatic Extremity: NARRATIVE EXTREMITY EXAM: Left arm in hinged elbow brace. She is diffusely tender to very light palpation along the entirety of the left forearm, extending from the elbow down into the hand. There is no skin temperature changes, no skin color changes, no mottling, radial pulses palpable. Sensations are intact distally. No swelling noted. No erythema. Neuro: COMMON NORMALS: patient oriented x3, moves all extremities, no focal motor deficits and no sensory deficits noted SENSORIUM/ORIENTATION: Yes alert Skin: COMMON NORMALS: no rashes or lesions noted GENERAL SKIN EXAM: no rashes or lesions noted Course Vital Signs: Vital signs: Vital Signs Temperature 97.9 F 07/15/25 14:57 Pulse Rate 88 07/15/25 14:57 Respiratory Rate 17 07/15/25 14:57 Pulse Oximetry 98 07/15/25 14:57 Oxygen Delivery Me thod Room Air 07/15/25 14:57 MDM - Extremity (Nontraumatic) Medical Decision Making Patient presented with left elbow pain, history of fracture dislocation, recently placed in hinged brace on 07/07. No trauma, states that she thinks she overused it at work. X-ray negative for any acute findings. She has relief after Toradol and Melcher Dallas here, she will follow-up with primary care on Friday and continue follow-up with orthopedist for further evaluation. She is to start physical therapy soon as well for strengthening exercises. Lab Data Radiology Impressions Elbow X-Ray 07/15/25 14:10 IMPRESSION: As above All radiology interpretation(s) finalized by discharge Discharge Plan Discharge Patient Disposition: Home Clinical Impression: Elbow pain, left Condition: Stable Prescriptions: No Action (DME) Left elbow fredi brace See Rx Instructions .Route .MEDSUPPLY Qty: 1 0RF Rx Instructions: As directed (DME) Left hinge elbow brace See Rx Instructions .Route .MEDSUPPLY Qty: 1 0RF Rx Instructions: As directed ibuprofen [Advil] 200 mg Tablet 800 mg PO Q6H PRN (Reason: Fever Or Pain) One-A-Day Women's Complete 18 mg iron- 400 mcg Tablet 1 tab PO DAILY Discharge Orders: Discharge ED (Routine); Ordered 07/15/25 Ordered By: Carter Anthony Patient Instructions: Patient Portal & [facility] Instructions Activity Restrictions/Additional Instructions: Discharge Instructions: Left Elbow Pain Your Diagnosis You were seen in the Emergency Department today for left elbow pain. You previously had a fracture-dislocation of your left elbow several weeks ago. Today's X-rays showed no new fractures or acute problems. Your elbow is healing as expected. Medications for Pain You were given pain medications in the Emergency Department that helped your pain: - Melcher [place] (hydrocodone/acetaminophen) - Take as prescribed for moderate to severe pain - Toradol (ketorolac) - An anti-inflammatory medication Important Medication Instructions: - Take Melcher [place] only as needed for pain, not on a scheduled basis - Do not take more than the prescribed amount - Do not drive or operate machinery while taking Melcher [place] - Avoid alcohol while taking pain medications - You may also use [id number] acetaminophen (Tylenol) or ibuprofen (Advil/Motrin) for pain if not taking Melcher Dallas, but check with your doctor about safe combinations Home Care Instructions - Rest: You have been given time off work to allow your elbow to rest and recover - Ice: Apply ice packs to your elbow for 15-20 minutes at a time, several times per day to reduce pain and swelling - Elevation: Keep your arm elevated when possible to reduce swelling - Gentle Movement: Begin gentle range of motion exercises as tolerated - early movement helps prevent stiffness - Avoid heavy lifting or strenuous activities with your left arm Warning Signs - Return to the Emergency Department if you experience: - Severe pain not controlled by your medications - Numbness or tingling in your hand or fingers - Inability to move your fingers or hand - Increased swelling, redness, or warmth around the elbow - Fever over 100.4?F (38?C) - Elbow feels unstable or gives out - Any new injury to the elbow Follow-Up Care - Schedule an appointment with your primary care doctor within 3-5 days - Your doctor may refer you to an cardiology specialist or physical therapist if needed - Physical therapy may be recommended to help restore full motion and strength to your elbow Expected Recovery - Most elbow injuries continue to improve over several weeks to months - Early gentle movement helps prevent stiffness and improves long-term outcomes - Some mild stiffness or discomfort may persist but typically improves with time and appropriate rehabilitation Work - You have been given a work excuse for the next few days - Discuss return to work timing with your primary care doctor at your follow-up visit Stand Alone Forms: Work/School Release Print Language: Moldovan Coding Level of Care Code ED Supervisor Treating And Pumping for Nehemias Paiz
[2025-07-15] MEDS: HYDROcodone-acetaminophen 7.5-325 mg Tablet 1 TAB PO (15:59)
[2025-07-15 16:44] VITALS: BP 142/96; PULSE 82; O2SAT 99
[2025-07-15 16:45] VITALS: BP 142/96; PULSE 82; O2SAT 99
== END 2025-07-15 16:46 | disposition home or self-care (01) ==
PROVIDERS: Emergency Provider Physician Assistant
DX: M25.522 Pain in left elbow (principal); Z72.0 Tobacco use
CPT/HCPCS: 73080; 96372; 99284; J1885; J9999